=== PATIENT | male | born 1960 | race Caucasian/White ===

== ENCOUNTER 2022-04-13 09:05 | Emergency (ER) | payer BC ==
[~2022-04-13] VITALS: Ht 175.3 cm; Wt 107.3 kg
[2022-04-13 09:14] VITALS: TEMP 97.9
[2022-04-13 10:04] LABS: BASO % 0.3 % (0.0-2.0); EOS % 0.3 % (0.0-4.0); GRAN # 10.4 K/mm3 (1.4-6.5); GRAN % 89.1 % (42.2-75.2); HEMATOCRIT 45.3 % (42.0-52.0); LYMPH # 0.7 K/mm3 (1.2-3.4); LYMPH % 6.2 % (20.0-51.0); MEAN CELL VOLUME 93 fl (80.0-100.0); MEAN CORPUSCULAR HEMOGLOBIN 31 pg (27-31); MEAN CORPUSCULAR HGB CONC 33 g/dl (33.0-37.0); MEAN PLATELET VOLUME 10.7 fl (7.4-10.4); MONO # 0.5 K/mm3 (0.1-0.6); MONO % 3.8 % (1.7-9.3); PLATELET COUNT 235 K/mm3 (130-400); RED BLOOD COUNT 4.87 M/mm3 (4.20-5.60); REDCELL DISTRIBUTION WIDTH-CV 12.3 % (11.5-14.5)
[2022-04-13 10:16] LABS: ALBUMIN 4.2 gm/dL (3.4-4.8); BILIRUBIN,TOTAL 0.8 mg/dL (0.2-1.2); CREATININE, serum 1.02 mg/dL (0.72-1.25); POTASSIUM 4.7 mmol/L (3.5-4.5); TOTAL PROTEIN 7.1 gm/dL (6.2-8.1)
[2022-04-13 10:17] LABS: COLLECTION METHOD CLEAN CATCH
[2022-04-13 10:31] LABS: MUCOUS Present (NOT PRESENT); PH 5 (5-8); SQUAMOUS EPITHELIAL None Seen /hpf (0-10); URINE APPEARANCE Turbid (CLEAR/HAZY); URINE BACTERIA None Seen /hpf (NONE SEEN); URINE BILIRUBIN Negative (NEGATIVE); URINE BLOOD 3+ (NEGATIVE); URINE COLOR Amber (YELLOW); URINE GLUCOSE Negative (NEGATIVE); URINE KETONE Negative (NEGATIVE); URINE LEUKOCYTE ESTERASE Negative (NEGATIVE); URINE NITRATE Negative (NEGATIVE); URINE PROTEIN(semi-quant) 2+ (NEGATIVE); URINE RBC >50 /hpf (0-2); URINE UROBILINOGEN Negative (NEGATIVE)
[2022-04-13] MEDS ORDERED: ZOFRAN ODT4 MG PO (10:43)
[2022-04-13] MEDS ORDERED: NORCO 325 MG-51 TAB PO (10:43)
[2022-04-13 10:56] VITALS: BP 157/81; PULSE 74
== END 2022-04-13 11:10 | disposition home or self-care (01) ==
LOC: COL.ER 09:05
PROVIDERS: Emergency Medicine
DX: N20.0 Calculus of kidney (principal); D72.829 Elevated white blood cell count, unspecified
CPT/HCPCS: J1885

== ENCOUNTER 2024-05-22 08:18 | Emergency (ER) | payer BC ==
[~2024-05-22] VITALS: Ht 175.3 cm; Wt 111.4 kg
[~2024-05-22 08:18] MED LIST: NORCO 325 MG-51 TAB PO; ZOFRAN ODT4 MG PO
[2024-05-22 08:22] VITALS: TEMP 97.6
[2024-05-22 08:44] LABS: BASO # 0.1 K/mm3 (0.0-0.2); BASO % 0.4 % (0.0-2.0); EOS # 0.1 K/mm3 (0.0-0.7); EOS % 0.7 % (0.0-4.0); GRAN # 11.9 K/mm3 (1.4-6.5); GRAN % 86.5 % (42.2-75.2); HEMATOCRIT 45.9 % (42.0-52.0); HEMOGLOBIN 15.4 g/dl (13.5-18.0); LYMPH % 7.2 % (20.0-51.0); MEAN CELL VOLUME 93 fl (80.0-100.0); MEAN CORPUSCULAR HEMOGLOBIN 31 pg (27-31); MEAN CORPUSCULAR HGB CONC 34 g/dl (33.0-37.0); MONO # 0.7 K/mm3 (0.1-0.6); MONO % 4.8 % (1.7-9.3); PLATELET COUNT 245 K/mm3 (130-400); RED BLOOD COUNT 4.95 M/mm3 (4.20-5.60); REDCELL DISTRIBUTION WIDTH-CV 12.3 % (11.5-14.5)
[2024-05-22] MEDS ORDERED: Ondansetron 4 MG/2 ML VIAL IV ONE (08:45)
[2024-05-22] MEDS ORDERED: fentaNYL 50 MCG/ML 2 ML VIAL IV ONE ×2 (08:45→09:15)
[2024-05-22] MEDS ORDERED: NS 1,000 ML IV ONE (08:45)
[2024-05-22 09:06] LABS: ALBUMIN 4.4 g/dL (3.4-4.8); CALCIUM 9.6 mg/dL (8.4-10.2); CREATININE, serum 1.16 mg/dL (0.72-1.25); POTASSIUM 4.4 mEq/L (3.5-4.5); TOTAL PROTEIN 7.2 g/dl (6.2-8.1)
[2024-05-22] MEDS ORDERED: Ketorolac 15 MG/ML VIAL IV ONE (09:30)
[2024-05-22 09:43] LABS: BILIRUBIN,TOTAL 0.8 mg/dL (0.2-1.2)
[2024-05-22 10:09] LABS: COLLECTION METHOD CLEAN CATCH
[2024-05-22 10:22] LABS: PH 5.5 (5.0-8.5); URINE APPEARANCE CLOUDY (CLEAR/HAZY); URINE BLOOD 3+ (NEGATIVE); URINE COLOR Dark Yellow (YELLOW); URINE GLUCOSE NEGATIVE (NEGATIVE); URINE KETONE TRACE (NEGATIVE); URINE NITRATE NEGATIVE (NEGATIVE); URINE PROTEIN(semi-quant) 1+ (NEGATIVE)
[2024-05-22] MEDS ORDERED: cefTRIAXone 1 G in Water For Injection,Sterile 10 ML IV ONE (11:00)
[2024-05-22 11:01] VITALS: BP 148/85; PULSE 80
[2024-05-22] MEDS ORDERED: FLOMAX 0.40.4 MG/CAP PO (11:30)
[2024-05-22] MEDS ORDERED: MACROBID 1100 MG/CAP PO (11:30)
[2024-05-22] MEDS ORDERED: NORCO 325 MG-51 TAB PO (11:30)
[2024-05-22] MEDS ORDERED: ZOFRAN ODT4 MG PO (11:30)
== END 2024-05-22 11:45 | disposition home or self-care (01) ==
LOC: COL.ER 08:18
PROVIDERS: Family Medicine
DX: N13.2 Hydronephrosis with renal and ureteral calculous obstruction (principal)
CPT/HCPCS: J0696; J1885; J2405; J3010; J7030